=== PATIENT | male | born 1995 | race Caucasian/White ===

== ENCOUNTER 2016-09-03 04:33 | Emergency (ER) | payer OTHER ==
--- NOTE | 2016-09-03 04:37 | EDPHY ---
H & P HPI/ROS: HPI CHIEF COMPLAINT: Right lower quadrant abdominal pain HISTORY OF PRESENT ILLNESS: This patient 21-year-old male, no significant medical or surgical history does not take any daily medications presents to the emergency room by private vehicle for worsening abdominal pain this evening. Patient states he has had some generalized discomfort in his abdomen for the past 3 days mainly in the midline abdomen epigastric region he thought it may be reflux, however the pain is persistent nail is focally localized to the right lower quadrant. He describes a sharp pain. It is constant. No fever, no vomiting. States he has not had a bowel movement today. Drove to the emergency room tonight due to ongoing worsening pain. Currently he has right lower quadrant abdominal pain. 11/24. Past Medical History: No medical history Past Surgical History: Denies any significant surgical history Social History: [employer] student, denies daily use of drugs alcohol tobacco products Family History: Noncontributory ROS REVIEW OF SYSTEMS: A comprehensive 10 point review of systems is otherwise negative aside from elements mentioned in the history of present illness. Exam Constitutional triage nursing summary reviewed, vital signs reviewed, awake/ alert. Eyes normal conjunctivae and sclera, EOMI, PERRLA. HENT normal inspection, atraumatic, moist mucus membranes, no epistaxis, neck supple/ no meningismus, no raccoon eyes. Respiratory clear to auscultation bilaterally, normal breath sounds, no respiratory distress, no wheezing. Cardiovascular rate normal, regular rhythm, no murmur, no edema, distal pulses normal. Gastrointestinal soft, mild tenderness to palpation right lower quadrant, no rebound, no guarding, normal bowel sounds, no distension, no pulsatile mass. Genitourinary no CVA tenderness. Musculoskeletal no midline vertebral tenderness, full range of motion, no calf swelling, no tenderness of extremities, no meningismus, good pulses, neurovascularly intact. Skin pink, warm, & dry, no rash, skin atraumatic. Neurologic awake, alert and oriented x 3, AAOx3, moves all 4 extremities equally, motor intact, sensory intact, CN II-XII intact, normal cerebellar, normal vision, normal speech. Psychiatric normal mood/affect. Heme/Lymph/Immune no lymphadenopathy. Differential diagnosis includes but is not limited to and in no particular order : Bowel obstruction, appendicitis, gallbladder disease, diverticulitis, colitis , enteritis, perforated viscus, gastritis, GERD, esophagitis, urinary tract infection, pyelonephritis, kidney stones Medical Decision Making: Plan for this patient be to have an IV established obtain blood work, he received fluid bolus 1 L normal saline, IV Dilaudid 0.5 mg for pain control and IV Zofran 4 mg for nausea. Check blood work, and patient will need a CT scan abdomen pelvis with IV contrast to rule out acute appendicitis. Re-evaluation: CT scan of the abdomen pelvis with IV contrast. The results of the study are retrocecal appendix that is larger martínez appendiceal inflammation, large dilated appendix. The study was read by Dr. Keyes I viewed the images myself on the PACS system. 0545: I have updated the patient that he has acute appendicitis he will need to stay in the hospital and have his appendix removed. He understands. He tells me he last ate at 10:30 a.m. or 11. At this time is pain is well controlled. I have ordered him IV Invanz. I will consult surgery for admission for acute appendicitis. 0549: Spoke with Dr. Justice. Will Plan for Surgery today. Will see in Er. Source: Patient Constitutional: Initial Vital Signs Temperature (C) 36.4 C 09/03/16 04:37 Heart Rate 54 L 09/03/16 04:37 Respiratory Rate 16 09/03/16 04:37 Blood Pressure 122/77 H 09/03/16 04:37 O2 Sat (%) 98 09/03/16 04:37 O2 Delivery Mode Room Air Allergies/Adverse Reactions: No Known Allergies Allergy (Unverified 09/03/16 04:40) Home Medications: Medication Instructions Recorded NK [No Known Home Meds] 09/03/16 Medical Decision Making - Data Points Laboratory Results: Laboratory Results 09/03/16 04:55 09/03/16 04:55 Medications Given: Discontinued Medications Hydromorphone HCl (Dilaudid) 0.5 mg IVP EDNOW ONE Stop: 09/03/16 04:51 Last Admin: 09/03/16 05:05 Dose: 0.5 mg Sodium Chloride (Ns) 1,000 mls @ 0 mls/hr IV ONCE ONE PRN Reason: Wide Open Stop: 09/03/16 04:51 Last Admin: 09/03/16 05:05 Dose: 1,000 mls Ertapenem 1 gm/ Sodium (Chloride) 100 mls @ 200 mls/hr IV EDNOW ONE PRN Reason: Protocol Stop: 09/03/16 06:11 Last Admin: 09/03/16 08:20 Dose: 100 mls Ketorolac Tromethamine (Toradol) 30 mg IVP EDNOW ONE Stop: 09/03/16 05:48 Last Admin: 09/03/16 06:08 Dose: 30 mg Ondansetron HCl (Zofran) 4 mg IVP EDNOW ONE Stop: 09/03/16 04:51 Last Admin: 09/03/16 05:05 Dose: 4 mg Departure - Departure Disposition: [facility] Inpatient Acute Clinical Impression: Abdominal pain Qualifiers: Abdominal location: right lower quadrant Qualified Code(s): R10.31 - Right lower quadrant pain Acute appendicitis Qualifiers: Acute appendicitis type: with localized peritonitis Qualified Code(s): K35.3 - Acute appendicitis with localized peritonitis Condition: Good Instructions: Acute Abdominal Pain (ED) Additional Instructions: no lifting >50 for 2 weeks Referrals: NONE *PRIMARY CARE P,. [Unknown] - As per Instructions
[2016-09-03] MEDS ORDERED: HYDROmorphONE/DILAUDID 1 MG/ML SYR IVP ONE (04:50)
[2016-09-03] MEDS ORDERED: ONDANSETRON 4 MG/2 ML VIAL IVP ONE (04:50)
[2016-09-03] MEDS ORDERED: NS 1,000 ML IV ONE (04:50)
[2016-09-03 05:16] LABS: % IMMATURE GRANULYOCYTES 0.4 % (0.0-1.1); ABSOLUTE IMMATURE GRANULOCYTES 0.04 10^3/uL (0.00-0.10); ADD DIFF? NO; ADD MORPH? NO; ADD SCAN? NO; ATYPICAL LYMPHOCYTE FLAG 30 (0-99); FRAGMENT RBC FLAG 0 (0-99); HEMATOCRIT 48.3 % (40.0-51.0); LEFT SHIFT FLG 0 (0-99); LIPEMIA HEMOLYSIS FLAG 90 (0-99); MEAN CELL HEMOGLOBIN 31.5 pg (27.9-34.1); MEAN CELL HEMOGLOBIN CONCENTR. 35.2 g/dL (32.4-36.7); MEAN CELL VOLUME 89.4 fL (81.5-99.8); PLATELET CLUMPS FLAG 0 (0-99); PLATELET COUNT 209 10^3/uL (150-400); RED CELL DISTRIBUTION WIDTH 12.5 % (11.5-15.2)
[2016-09-03 05:21] LABS: ALANINE AMINOTRANSFERASE 38 IU/L (21-72); ALBUMIN 4.1 g/dL (3.5-5.0); ALKALINE PHOSPHATASE 89 IU/L (38-126); ANION GAP 8 mEq/L (8-16); ASPARTATE AMINOTRANSFERASE 30 IU/L (17-59); BILIRUBIN,TOTAL 1.1 mg/dL (0.1-1.4); BILIRUBIN-CONJUGATED 0.2 mg/dL (0.0-0.5); BILIRUBIN-UNCONJUGATED 0.9 mg/dL (0.0-1.1); CALCIUM 9.2 mg/dL (8.5-10.4); CARBON DIOXIDE 30 mEq/l (22-31); CHLORIDE 101 mEq/L (97-110); CREATININE 1.1 mg/dL (0.7-1.3); GLOMERULAR FILTRATION RATE > 60; GLUCOSE 94 mg/dL (70-100); POTASSIUM 4.1 mEq/L (3.5-5.2); SODIUM 139 mEq/L (134-144); TOTAL PROTEIN 6.7 g/dL (6.3-8.2)
[2016-09-03] MEDS ORDERED: IOPAMIDOL (ISOVUE-300) 100 ML BTL IV ONE (05:22)
[2016-09-03 05:31] LABS: INR 1.05 (0.83-1.16); PROTIME(PATIENT) 13.6 SEC (12.0-15.0)
[2016-09-03 05:32] LABS: APTT 28.8 SEC (23.0-38.0)
[2016-09-03] MEDS ORDERED: ERTAPENEM 1 GM in NS 100 ML IV ONE (05:42)
[2016-09-03] MEDS ORDERED: KETOROLAC 30 MG/1 ML SDV IVP ONE (05:47)
[2016-09-03] MEDS ORDERED: SKIN ADHESIVE (DERMABOND) 1 EACH TP ONE (06:52)
[2016-09-03] MEDS ORDERED: BUPIVACAINE 0.5% 30 ML SDV ONE (06:52)
[2016-09-03] MEDS ORDERED: LIDOCAINE 1% 30 ML SDV ONE (06:52)
[2016-09-03 07:13] VITALS: TEMP 97.7; O2SAT 98
--- NOTE | 2016-09-03 07:29 | GHP ---
[f rep st] PREOP HISTORY AND PHYSICAL DATE OF ADMISSION: 09/03/2016 REASON FOR EVALUATION: Appendicitis. HISTORY OF PRESENT ILLNESS: 21-year-old healthy [employer] student with a 3-day history of periumbilical pain and associated reflux type symptoms. The pain progressed over the last few days and localized down to his right lower quadrant bringing him to the emergency room earlier this morning. No prior history of similar complaints. No fevers or chills at home. No nausea or vomiting. Bowel movements have been soft without diarrhea. No voiding complaints. He describes the car ride was not particularly uncomfortable. He is not hungry at this time. He has no antecedent history of similar complaints. PAST MEDICAL HISTORY: None. PAST SURGICAL HISTORY: None. MEDICATIONS: None. ALLERGIES: No known drug allergies. SOCIAL HISTORY: Occasional alcohol. Occasional tobacco. He is a sophomore. FAMILY HISTORY: Noncontributory. REVIEW OF SYSTEMS: Notable for above GI complaints only, otherwise negative 10- point review of systems. PHYSICAL EXAMINATION: VITAL SIGNS: Temperature 36, blood pressure 115/70, pulse 80, respirations 15. GENERAL: The patient is alert, appropriate, comfortable. HEENT: Anicteric. No cervical or supraclavicular lymphadenopathy. HEART: Regular without murmurs. LUNGS: Clear bilaterally. ABDOMEN: Soft. Mild right lower quadrant tenderness without rebound or guarding. No Rovsing sign. No obturator sign. No psoas sign. SKIN: Warm to touch. EXTREMITIES: Unremarkable. NEUROLOGIC: Alert and appropriate x3. 2+ radial pulses bilaterally. LABORATORY DATA: White count 11,000. Electrolytes within reference range. CT images directly reviewed on [place] and with patient. Thickened appendix with appendicolith with moderate periappendiceal inflammatory changes. No free air. No significant free fluid. IMPRESSION: Acute appendicitis. PLAN: Laparoscopic appendectomy. Surgical risks and benefits were explained to the patient including bleeding, infection, open conversion, as well as alternative diagnoses. All questions were entertained. He desires to proceed. /[id number]/MODL MTDD
[2016-09-03] MEDS ORDERED: fentaNYL 250 MCG/5 ML INJ ONE (10:52)
[2016-09-03] MEDS ORDERED: PROPOFOL 200 MG/20 ML VIAL ONE ×2 (10:52)
[2016-09-03] MEDS ORDERED: MIDAZOLAM 2 MG/2 ML VIAL ONE (11:02)
[2016-09-03] MEDS ORDERED: ROCURONIUM 50 MG/5 ML VIAL ONE ×2 (11:29)
[2016-09-03] MEDS ORDERED: DEXAMETHASONE 4 MG/ML VIAL ONE (11:30)
[2016-09-03] MEDS ORDERED: ONDANSETRON 4 MG/2 ML VIAL ONE (11:31)
[2016-09-03] MEDS ORDERED: SUGAMMADEX SODIUM 200 MG/2 ML VIAL IVP ONE (11:42)
--- NOTE | 2016-09-03 12:04 | POSTOPPROG ---
Post Op Note Date of Operation: 09/03/16 Surgeon: Naseem Clinton Feed Adviser: none Anesthesiologist: Alexander Anesthesia: GET(General Endotracheal) Pre-op Diagnosis: Acute appendicitis Post-op Diagnosis: same Procedure: Laparoscopic Appendectomy Inf/Abcess present in the surg proc area at time of surgery?: Yes Depth: Organ Space EBL: Minimal Complications: none Specimen(s): appendicitis
[2016-09-03 12:39] VITALS: BP 112/67; PULSE 57; RESP 16
[2016-09-03] MEDS ORDERED: HYDROCODONE/APAP 5/325 TAB ONE (13:28)
[2016-09-03] MEDS ORDERED: HYDROCODONE/APAP 5/325 TAB PO PRN (13:35)
[2016-09-03] MEDS ORDERED: ONDANSETRON 4 MG/2 ML VIAL IVP PRN (13:36)
[2016-09-03] MEDS ORDERED: METOCLOPRAMIDE 10 MG/2 ML VIAL IVP PRN (13:37)
[2016-09-03] MEDS ORDERED: KETOROLAC 15 MG/1 ML SDV IVP SCH (14:00)
--- NOTE | 2016-09-04 06:13 | GOP ---
[f rep st] OPERATIVE REPORT DATE OF OPERATION: SURGEON: Naseem Clinton MD [facility] ATTENDANT: None. ANESTHESIOLOGIST: Dr. Santos Munoz MD. PREOPERATIVE DIAGNOSIS: Acute appendicitis. POSTOPERATIVE DIAGNOSIS: Acute appendicitis. PROCEDURE PERFORMED: Laparoscopic appendectomy. FINDINGS: SPECIMENS: Appendix to permanent pathology. ESTIMATED BLOOD LOSS: 5 mL. INDICATIONS: This 21-year-old gentleman presents with several days of worsening midepigastric to ri ght lower quadrant abdominal pain, leukocytosis, and CT scan consistent with acute appendicitis. DESCRIPTION OF PROCEDURE: Patient was brought to the operating room. After induction of endotrache al anesthesia in a supine position, his abdomen was prepped with chlorhexidine and draped sterilely. Open preperitoneal trocar placement was done after a time-out procedure according to institutional standards. The abdomen was insufflated to 15 torr with carbon dioxide. Working trocars were place d in the lower midline under direct visualization. The appendix was brought in the field of dissect ion. The mesentery was controlled with bipolar energy and the base of the appendix was divided flus h with the cecum using an Endo-MARGARITA 45 stapler. The specimen was placed in a bag. Hemostasis assure d to be meticulous. The abdomen was exited. Working trocars were removed under direct visualizatio n. The appendix in an Endopouch was brought out through the umbilical incision. The umbilical inci vincent was closed at the fascial level using 0 Vicryl and all 3 ports were reapproximated at the skin level using 4-0 Monocryl and Dermabond. The patient was awakened, extubated, and taken to recovery room in stable condition. Needle, instrument, sponge counts were verified to be correct x2. COMPLICATIONS: None. /[id number]/MODL
== END 2016-09-03 08:21 | disposition home or self-care (01) ==
LOC: UNDOADMIN 05:48
PROC: 0DTJ8ZZ Resection of Appendix, Via Natural or Artificial Opening Endoscopic (ICD-10-PCS; principal; 2016-09-03 10:15)
DX: K35.80 Unspecified acute appendicitis (principal)
CPT/HCPCS: 96374; J1100; J1170; J1335; J1885; J2250; J2405; J2704; J3010; Q9967